=== PATIENT | male | born 1980 | race Caucasian/White ===

== ENCOUNTER 2020-09-09 08:02 | Day surgery (SDC) | payer BC ==
[~2020-09-09] VITALS: Ht 193 cm; Wt 129.5 kg
[~2020-09-09 08:02] MED LIST: MULTI VITAMIN1 EACH PO; SEPTRA DS TABL1 EACH PO
--- NOTE | 2020-09-09 09:51 | NUR ---
09/09/20 0951 Kyra Mccoy 0946-PATIENT ARRIVED TO PACU ON 6L MASK RR EVEN NONAROUSABLE. IVF INFUSING. SR. NO DRAINAGE NOTED. 0949-PATIENT AROUSING TO VERBAL STIMULI COUGHING HOB ELEVATED. NO SPUTUM SEEN. PATIENT ORIENTED TO PACU DENIES PAIN OR NAUSEA. PATIENT DROWSY DOZES BACK TO SLEEP
--- NOTE | 2020-09-09 10:12 | NUR ---
ICED WATER AND PUDDING GIVEN. CALL LIGHT IS WITHIN REACH. SPOUSE IS AT THE BEDSIDE.
--- NOTE | 2020-09-09 14:19 | OR ---
[facility] [address], [place] [address] Signed DATE OF OPERATION: 09/09/2020 SURGEON: Raymundo Redmond MD PREOPERATIVE DIAGNOSIS: Dysphagia. POSTOPERATIVE DIAGNOSIS: Dysphagia. PROCEDURE: Direct laryngoscopy, direct esophagoscopy. ANESTHESIA: General orotracheal; [employer]NA[employer], Cassandra. PREOPERATIVE HISTORY: Mr. Lovell is a 39-year-old man with a foreign body sensation in his throat. Several months ago, he was eating [employer] chicken, felt like he swallowed a toothpick, he has had persistent symptoms pointing to the inferior laryngeal area bilaterally since that episode. Exam in the office has shown no foreign bodies. He was taken to the operating room for exam under anesthesia and the above-mentioned procedures. OPERATIVE PROCEDURE AND FINDINGS: After informed consent, the patient was taken to the operating room, placed in supine position where general orotracheal anesthesia was induced. The patient and procedure were verified. The patient was repositioned. The anterior commissure laryngoscope was used to visualize the hypopharynx and larynx, thus mild diffuse inflammation of the larynx, vocal cords, arytenoids, but otherwise no abnormalities, pyriforms were clear. No pooling. No foreign bodies. The scope was removed. The cervical esophagoscope was then passed down to about 25 cm. No abnormalities identified on the way in or out. No foreign bodies. No inflammation, pooling, etc. The scope was removed. The patient tolerated the procedure well, was awakened, extubated, transported to the recovery room in good condition. No complications. BLOOD LOSS: Minimal. SPECIMEN: No specimen. Electronically Signed By: RAYMUNDO REDMOND MD 09/09/20 1419 PATIENT NAME: SAMI LOVELL OPERATIVE REPORT DATE OF : 84 REPORT #: [id number] PHYSICIAN: RAYMUNDO REDMOND MD PCP: ELINA FERRO MD REPORT IS CONFIDENTIAL AND NOT TO BE RELEASED WITHOUT AUTHORIZATION [facility] [address] [place] [id number] Signed DRAINS: No drains. Raymundo Redmond MD GC/MODL /[id number] Copies: ~ Electronically Signed By: RAYMUNDO REDMOND MD 09/09/20 1419 PATIENT NAME: SAMI LOVELL OPERATIVE REPORT DATE OF : 84 REPORT #: [id number] PHYSICIAN: RAYMUNDO REDMOND MD PCP: ELINA FERRO MD REPORT IS CONFIDENTIAL AND NOT TO BE RELEASED WITHOUT AUTHORIZATION
== END 2020-09-09 10:10 | disposition home or self-care (01) ==
LOC: DS 08:02 → OPS 08:02
PROVIDERS: ATTEND Otolaryngology
PROC: 0DJ08ZZ Inspection of Upper Intestinal Tract, Via Natural or Artificial Opening Endoscopic (ICD-10-PCS; principal; 2020-09-09 09:00)
DX: R13.10 Dysphagia, unspecified (principal); F17.220 Nicotine dependence, chewing tobacco, uncomplicated; K21.9 Gastro-esophageal reflux disease without esophagitis; L98.8 Other specified disorders of the skin and subcutaneous tissue; R20.0 Anesthesia of skin; R20.2 Paresthesia of skin
CPT/HCPCS: J0330; J1100; J1885; J2001; J2250; J2405; J2704